=== PATIENT | female | born 1990 | race Caucasian/White ===

== ENCOUNTER 2022-05-27 17:20 | Emergency (ER) | payer OTHER, SELFPAY ==
--- NOTE | ~2022-05-27 | CT_ITS ---
EXAMINATION: CT ABDOMEN AND PELVIS WITHOUT CONTRAST CLINICAL INFORMATION: Left lower quadrant pain, fever. COMPARISON: None available. TECHNIQUE: Multidetector volumetric imaging was performed from the superior aspect of the liver through the pubic symphysis. Sagittal and coronal reformatted images were obtained on the technologist's workstation. This CT examination was performed using dose optimization techniques as appropriate, variously including the following: *Automated exposure control *Adjustment of mA and/or kV according to patient size (this includes techniques or standardized protocols for targeted exams where dose is matched to indication/reason for exam; i.e. extremities or head) *Use of iterative reconstruction technique DLP: 349 mGy-cm FINDINGS: LUNG BASES: No focal consolidation or pleural effusion. LIVER, GALLBLADDER, AND BILIARY TREE: The liver is normal in size, shape and attenuation. Hypodensities along the subcapsular posterior right hepatic lobe (3:21 and 3:32) are favored to represent artifacts when correlated with the thin section images, coronal and sagittal planes. No other focal liver abnormality in this limited noncontrast examination. Normal appearance of the gallbladder. No biliary ductal dilatation. PANCREAS: Limited noncontrast examination, unremarkable. SPLEEN: Limited noncontrast examination, unremarkable. Small anterior splenule. ADRENAL GLANDS: No adrenal nodule. KIDNEYS AND URETERS: Limited noncontrast examination, no nephrolithiasis or hydronephrosis. No significant perinephric fat stranding. BLADDER: Partially decompressed and displaced anteriorly by an enlarged uterus and significant amount of stool in the rectum. GASTROINTESTINAL TRACT: Large amount of stool in the rectum and sigmoid without significant associated rectal wall thickening or perirectal fat stranding. The stomach and the small bowel are nondilated, the appendix is not visualized, however there are no significant inflammatory changes to suspect acute appendicitis. ABDOMINAL WALL: No significant hernia is appreciated. LYMPH NODES: Limited evaluation due to decreased abdominal fat and lack of IV contrast, no bulky adenopathy. Scattered prominent mesenteric lymph nodes. VASCULAR: Limited noncontrast examination. Abdominal aorta is normal in diameter. PELVIC VISCERA: The uterus is markedly enlarged and demonstrates loss of distinction between the different layers including myometrium, junctional zone and endometrium. There are multiple low density foci in the region of the cervix. The left ovary appears asymmetrically enlarged (8:30). Asymmetric thickening with high density in the right inguinal canal measuring up to 2.3 x 2.4 cm (3:75) appears to be related with the ligamentum teres. OSSEOUS STRUCTURES: No acute or aggressive appearing osseous abnormalities. CT/CT abdomen pelvis wo IV con IMPRESSION: Abnormal appearance of the uterus which is markedly enlarged with loss of differentiation of the intrauterine tissue layers, finding that is fairly nonspecific, differential considerations includes post gravid state, adenomyosis, leiomyomatosis, among others. Recommend correlation with a pelvic ultrasound or pelvic MRI with and without IV contrast. The left ovary appears asymmetrically enlarged and there are multiple low density foci in the cervix that could potentially represent nabothian cysts; as above evaluation with a pelvic ultrasound or MRI is recommended. At the entrance of the right inguinal canal there is asymmetric soft tissue thickening with high density, felt to be in continuity with the ligamentum teres, this could represent a hematoma of the ligamentum teres, correlate with physical examination and targeted sonographic examination. Very large amount of stool in the rectum and sigmoid. This result was discussed with Dorinda MORRISSEY at 05/27/2022 8:26 PM and it was ascertained that the content of the report was understood at the time of direct communication.
--- NOTE | ~2022-05-27 | US_ITS ---
EXAMINATION: US PELVIS CLINICAL INFORMATION: Assess uterus COMPARISON: CT scan same day TECHNIQUE: Ultrasound of the pelvis is performed using both transabdominal and transvaginal transducers along with Doppler. Transvaginal imaging is performed due to inadequate visualization transabdominally. FINDINGS: Uterus: The uterus is anteverted and measures 12.5 x 6.8 x 8.5 cm. Retroverted Uterus is diffusely hypoechoic and heterogeneous. The central endometrial complex appears markedly thickened. Patient refusing endovaginal scanning which limits assessment. Adnexa: Both ovaries are visualized. There is normal color flow to the adnexa. There is no ovarian torsion. There is no pelvic ascites or fluid collection. Right ovary and left ovary measures approximately 2 cm each. Several nabothian cysts are noted. Normal flow to both ovaries. US/US pelvic complete IMPRESSION: Markedly abnormal appearance of the uterus which is diffusely hypoechoic and heterogeneous. The endometrial complex appears markedly thickened. Patient refusing endovaginal scanning which limits assessment. Recommend ELECTROMYOGRAPHIC TECHNICIAN assessment and elective MRI for further assessment.
--- NOTE | ~2022-05-27 | US_ITS ---
EXAMINATION: US PELVIS CLINICAL INFORMATION: Assess uterus COMPARISON: CT scan same day TECHNIQUE: Ultrasound of the pelvis is performed using both transabdominal and transvaginal transducers along with Doppler. Transvaginal imaging is performed due to inadequate visualization transabdominally. FINDINGS: Uterus: The uterus is anteverted and measures 12.5 x 6.8 x 8.5 cm. Retroverted Uterus is diffusely hypoechoic and heterogeneous. The central endometrial complex appears markedly thickened. Patient refusing endovaginal scanning which limits assessment. Adnexa: Both ovaries are visualized. There is normal color flow to the adnexa. There is no ovarian torsion. There is no pelvic ascites or fluid collection. Right ovary and left ovary measures approximately 2 cm each. Several nabothian cysts are noted. Normal flow to both ovaries. US/US pelvic ovarian doppler IMPRESSION: Markedly abnormal appearance of the uterus which is diffusely hypoechoic and heterogeneous. The endometrial complex appears markedly thickened. Patient refusing endovaginal scanning which limits assessment. Recommend ENAMEL APPLIER assessment and elective MRI for further assessment.
[2022-05-27 17:27] VITALS: BP 119/73; PULSE 112; O2SAT 99
--- NOTE | 2022-05-27 17:27 | ED.ABDPAIN ---
HPI - Abdominal Pain General Stated Complaint: ll abdominal pain Related Data Allergies Allergy/AdvReac Type Severity Reaction Status Date / Time No Known Allergies Allergy Verified 05/27/22 17:41 Course Course Course Narrative: RME - 31 yo female with history of asthma, history of bowel resection in 2009 due to ?obstruction who presents to the ER for evaluation of 2 weeks of left lower abdominal pains, subjective fevers and unable to tolerate solid foods. Having normal BMs. Has been vomiting everyday. Tachycardic in triage. Plan: labs and CT scan for further evaluation
[2022-05-27 17:42] VITALS: BP 119/90; PULSE 128; RESP 19; TEMP 36.7; O2SAT 98; BMI 20.6
[2022-05-27 18:01] LABS: MANUAL DIFF FLAG NO
[2022-05-27 18:02] LABS: Basophils Percent Auto 0.3 % (0-2); Eosinophils Absolute Auto 0.2 X10*3/uL (0.0-0.4); Eosinophils Percent Auto 1.3 % (0-4); Hematocrit 33.9 % (37.0-47.0); Hemoglobin 10.8 g/dl (12.0-16.0); Imm Gran Abs Auto 0.06 X10*3/uL (0.00-0.03); Imm Gran Pct Auto 0.5 % (0.0-0.4); Lymphocytes Absolute Auto 1.9 X10*3/uL (1.2-4.9); Lymphocytes Percent Auto 16.5 % (20-40); Mean Corpuscular HGB Conc 31.9 g/dl (31.0-35.0); Mean Corpuscular Hemoglobin 21.1 pg (27.0-33.0); Mean Corpuscular Volume 66.3 fL (80.0-98.0); Mean Platelet Volume 9.7 fL (9.4-12.3); Monocytes Absolute Auto 0.8 X10*3/uL (0.1-1.2); Monocytes Percent Auto 6.4 % (2-11); Neutrophils Absolute Auto 8.8 x10*3/uL (2.0-8.3); Platelet Count 538 X10*3/uL (160-400); Red Blood Count 5.11 X10*6/uL (4.20-5.50); Red Cell Distribution Width 17.2 % (11.0-16.0); White Blood Count 11.8 X10*3/uL (4.8-10.8)
[2022-05-27 18:27] LABS: Alanine Aminotransferase 6 U/L (0-31); Albumin Level 4.3 g/dL (3.5-5.0); Alkaline Phosphatase 72 U/L (39-117); Anion Gap 15 (12-20); Aspartate Amino Transferase 10 U/L (5-31); Bilirubin Direct 0.2 mg/dL (0.0-0.5); Bilirubin Total 0.6 mg/dL (0.0-1.0); Blood Urea Nitrogen 13 mg/dL (9-16); Calcium 9.3 mg/dL (8.4-10.2); Carbon Dioxide 24 mmol/L (22-29); Chloride 104 mmol/L (96-108); Creatinine Clr Calc Pharmacy 100.9; Estimated Glomerular Filt Rate > 60; Glucose Random 99 mg/dL (60-115); Magnesium 2.3 mg/dL (1.6-2.6); Potassium 3.9 mmol/L (3.3-5.1); Sodium 139 mmol/L (135-145); Total Protein 7.2 g/dL (6.5-8.0)
[2022-05-27 18:34] LABS: HCG Quantitative < 2 mIU/mL
[2022-05-27 22:00] VITALS: BP 106/72; PULSE 91; RESP 16; TEMP 37.3; O2SAT 98
--- NOTE | 2022-05-27 22:19 | ED.ABDPAIN ---
HPI - Abdominal Pain General Chief Complaint: Abdominal Pain Stated Complaint: ll abdominal pain Time Seen by Provider: 05/27/22 22:05 Source: patient and family History of Present Illness HPI narrative: Patient with cramping abdominal pain mostly earlier today. It is starting to resolve now spontaneously. Patient complains of having her period now but typically does not have. Cramping or pain is. No recent fevers or chills No change to diet She denies constipation but has been taking laxatives to help her have a bowel movement without success. No vomiting or nausea. History of similar issues Their medical problems. She does not take medications. Does not use tobacco, alcohol, drugs. Related Data Previous Rx's Medication Instructions Recorded magnesium citrate 300 ml PO DAILY PRN constipation 05/27/22 #296 mL Allergies Allergy/AdvReac Type Severity Reaction Status Date / Time No Known Allergies Allergy Verified 05/27/22 17:41 Review of Systems Comments: No fevers or chills Comments: No chest pain Comments: No cough Gastrointestinal: Reports as per HPI Comments: No Urinary symptoms. Vaginal bleeding as mentioned. Patient states normal flow, no menorrhagia. No vaginal discharge PMFSH Social History Social History Advance Directives: No Advance Directives Information Provided: Yes Physical Exam ED Vital Signs: Vital Signs - 24 hr 05/27/22 17:42 Temperature 98.1 F Pulse Rate 128 H Respiratory Rate 19 Blood Pressure 119/90 H Pulse Oximetry 98 Oxygen Delivery Method Room Air BMI result Body Mass Index 20.6 Const Other: Awake and alert. No acute distress Resp Other: Clear and equal bilaterally without wheezes rales or rhonchi Cardio Other: Regular rate and rhythm without murmurs rubs or gallops GI Other: Soft, nontender. Fullness in the left lower quadrant. No guarding rebound. Bowel sounds normal. Skin Other: Warm pink and dry without rash Neuro Other: Nonfocal Medical Decision Making Medical Decision Making MDM Narrative: Workup in emergency department shows white count of 11.8. Chemistries are normal. Creatinine is norm. LFTs are normal. Beta hCG is less than 2. CT scan shows large heterogeneous uterus. It also shows large amounts of stool. No fat stranding or evidence of colitis or other infection. Ultrasound confirms the above findings without evidence of torsion this a follow-up already planned with her district agent as part of her routine follow-up. Patient will take ibuprofen for discomfort. Magnesium citrate for constipation. Follow-up with gynecology for uterine abnormality Lab Data 05/27/22 17:52 05/27/22 17:52 Labs: Lab Results 05/27/22 05/27/22 05/27/22 Range/Units 17:52 17:52 17:52 WBC 11.8 H (4.8-10.8) X10*3/uL RBC 5.11 (4.20-5.50) X10*6/uL Hgb 10.8 L (12.0-16.0) g/dl Hct 33.9 L (37.0-47.0) % MCV 66.3 L (80.0-98.0) fL MCH 21.1 L (27.0-33.0) pg MCHC 31.9 (31.0-35.0) g/dl RDW 17.2 H (11.0-16.0) % Plt Count 538 H (160-400) X10*3/uL MPV 9.7 (9.4-12.3) fL Immature Gran % (Auto) 0.5 H (0.0-0.4) % Neut % (Auto) 75.0 H (45-73) % Lymph % (Auto) 16.5 L (20-40) % [place] % (Auto) 6.4 (2-11) % Eos % (Auto) 1.3 (0-4) % Baso % (Auto) 0.3 (0-2) % Lymph # (Auto) 1.9 (1.2-4.9) X10*3/uL [place] # (Auto) 0.8 (0.1-1.2) X10*3/uL Eos # (Auto) 0.2 (0.0-0.4) X10*3/uL Baso # (Auto) 0.0 (0.0-0.2) X10*3/uL Abs Immat Gran (auto) 0.06 H (0.00-0.03) X10*3/uL Absolute Neuts (auto) 8.8 H (2.0-8.3) x10*3/uL Absolute Nucleated RBC 0.000 (0.0-0.012) X10*3/uL Nucleated RBC % (auto) 0.0 (0.0-0.2) /100WBC Sodium 139 (135-145) mmol/L Potassium 3.9 (3.3-5.1) mmol/L Chloride 104 (96-108) mmol/L Carbon Dioxide 24 (22-29) mmol/L Anion Gap 15 (12-20) BUN 13 (9-16) mg/dL Creatinine 0.73 (0.5-1.4) mg/dL Estim Creat Clear Calc 100.9 Estimated GFR > 60 Random Glucose 99 (60-115) mg/dL Calcium 9.3 (8.4-10.2) mg/dL Magnesium 2.3 (1.6-2.6) mg/dL Total Bilirubin 0.6 (0.0-1.0) mg/dL Direct Bilirubin 0.2 (0.0-0.5) mg/dL AST 10 (5-31) U/L ALT 6 (0-31) U/L Alkaline Phosphatase 72 (39-117) U/L Total Protein 7.2 (6.5-8.0) g/dL Albumin 4.3 (3.5-5.0) g/dL Beta HCG, Quant < 2 mIU/mL Discharge Plan Discharge Clinical Impression: Constipation, Dysmenorrhea Patient Disposition: Home, Self-Care Instructions: Dysmenorrhea (ED), Constipation (ED) Additional Instructions: Your CT scan showed constipation but also a large uterus. This was confirmed on ultrasound. Subacute infection however. Take ibuprofen for cramping. Magnesium citrate is for constipation. B she follow-up with her district agent as scheduled for evaluation of the enlarged uterus Prescriptions: New magnesium citrate Solution 300 ml PO DAILY PRN (Reason: constipation) Qty: 296 0RF Rx Instructions: Drink 1/2 of the bottle in the morning. Drink the rest in the early afternoon if you have not had significant amounts of bowel movement
== END 2022-05-27 22:37 | disposition home or self-care (01) ==
PROVIDERS: Physician Assistant; Emergency Provider Emergency Medicine
DX: K59.00 Constipation, unspecified (principal); N94.4 Primary dysmenorrhea; R10.2 Pelvic and perineal pain; Z79.899 Other long term (current) drug therapy
CPT/HCPCS: 36415; 74176; 76856; 80048; 80076; 83735; 84702; 85025; 93975; 99284